=== PATIENT | female | born 1995 | race Caucasian/White ===

== ENCOUNTER 2017-01-17 13:54 | Emergency (ER) | payer OTHER ==
[2017-01-17 14:01] VITALS: BP 120/70; PULSE 73; RESP 14; TEMP 99; O2SAT 95
--- NOTE | 2017-01-17 14:29 | UCPHY ---
H & P Time Seen by Provider: 01/17/17 14:19 Patient Type: New (CHIEF COMPLAINT: [ ]HISTORY OF PRESENT ILLNESS: [must have 4 elements]REVIEW OF SYSTEMS: My complete review of systems is negative except as mentioned in the HPI.) HPI/ROS: CHIEF COMPLAINT: Vaginal bleeding HISTORY OF PRESENT ILLNESS: Patient is a 21-year-old female with a IUD in place who presents to urgent care with vaginal bleeding x2 days. Her bleeding started after sexual intercourse. She did have mild pain after intercourse and that she may have sustained an injury. The bleeding has decreased over the past 2 days. She states she had chills last night. No measured fever. She has no abdominal pain arrest. No vaginal discharge other than the reported bleeding. No dysuria or frequency. Patient is G0. Last menstrual period was "2 years ago. " REVIEW OF SYSTEMS: My complete review of systems is negative except as mentioned in the HPI. Past Medical/Surgical History: Negative Social History: Positive THC Smoking Status: Former smoker Physical Exam: Vitals noted GENERAL: Well-appearing, in no acute distress, alert. HEENT: Eyes normal to inspection, normal pharynx, no signs of dehydration. NECK: No thyromegaly, no lymphadenopathy, supple. RESPIRATORY: Clear to auscultation bilaterally, no rales, rhonchi or wheezing. CVS: Regular rate and rhythm, no rubs, murmurs, or gallops. ABDOMEN: Soft, minimal suprapubic tenderness to palpation with no rebound or guarding, nondistended, no organomegaly. BACK: Normal to inspection, no CVA tenderness. SKIN: Normal color, no rash, warm, dry. No pallor. EXTREMITIES: No pedal edema, no calf tenderness, no Homans sign or cords, no joint swelling. NEURO/PSYCH: Alert and oriented, normal mood and affect, normal motor sensory exam. Constitutional: Initial Vital Signs Temperature (C) 37.2 C 01/17/17 13:59 Heart Rate 73 01/17/17 13:59 Respiratory Rate 14 01/17/17 13:59 Blood Pressure 120/70 01/17/17 13:59 O2 Sat (%) 95 01/17/17 13:59 O2 Delivery Mode Room Air Allergies/Adverse Reactions: No Known Allergies Allergy (Unverified 08/06/16 15:50) Home Medications: Medication Instructions Recorded NK [No Known Home Meds] 08/06/16 Medical Decision Making ED Course/Re-evaluation: In urgent care discussed possible etiologies with the patient. She consented to a pelvic exam. FEMALE : Patient has a normal external pelvic exam. No lesions or discharge. Speculum exam: No visible vaginal injury or laceration. Normal appearing cervix. No lesions or discharge. There is tenderness colored discharge from the cervix. IUD appears in place. Bimanual exam: Normal, no tenderness to palpation bilaterally, normal ovaries bilaterally, normal uterus. UA: Negative. negative No clue cells, no Trichomonas, no yeast. GC and chlamydia pending. I discussed the results with the patient. She is aware that her swabs are pending the lab. I discussed the case with Dr. Beard. She will arrange close follow-up. The patient was given Dr. Beard contact information. She will return with worsening symptoms. She was given warnings prior to leaving. Differential Diagnosis: My differential on includes but is not limited to vaginal laceration, abrasion, contusion, cervical injury, IUD displacement, STD, urinary tract infection, vaginitis - Data Points Laboratory Results: 01/17/17 01/17/17 01/17/17 14:40 14:40 14:40 Urine Color YELLOW Urine Appearance CLEAR Urine pH 8.0 H (5.0-7.5) Ur Specific [place] 1.010 (1.002-1.030) Urine Protein NEGATIVE (NEGATIVE) Urine Ketones NEGATIVE (NEGATIVE) Urine Blood NEGATIVE (NEGATIVE) Urine Nitrate NEGATIVE (NEGATIVE) Urine Bilirubin NEGATIVE (NEGATIVE) Urine Urobilinogen 1.0 EU EU (0.2-1.0) Ur Leukocyte Esterase NEGATIVE (NEGATIVE) Ur Culture Indicated? NOT INDICATED (NI) Urine Glucose NEGATIVE (NEGATIVE) Urine Test Trichomonas (Wet Prep) 3+ EPITHELIAL CELLS Rachelle species DNA Pending C.trachomatis RNA (TMA) Pending Gardnerella DNA Probe Pending N.gonorrhoeae RNA (TMA) Pending Trichomonas DNA Probe Pending 01/17/17 14:40 Urine Color Urine Appearance Urine pH Ur Specific Evarts Urine Protein Urine Ketones Urine Blood Urine Nitrate Urine Bilirubin Urine Urobilinogen Ur Leukocyte Esterase Ur Culture Indicated? Urine Glucose Urine Test NEGATIVE Trichomonas (Wet Prep) Rachelle species DNA C.trachomatis RNA (TMA) Gardnerella DNA Probe N.gonorrhoeae RNA (TMA) Trichomonas DNA Probe Departure - Departure Disposition: Home, Routine, Self-Care Clinical Impression: Vaginal bleeding Condition: Good Instructions: Vaginal Discharge (ED) Additional Instructions: You have cultures pending. I discussed this with Dr. Beard. You need follow- up with Dr. Beard next week. Call her office for an appointment. Referrals: Adrienne Beard MD [Medical Doctor] - 3-4 days, if not improved - PQRS PQRS Measurement: My PQRS negative my PQRS negative my PQRS negative my PQRS negative 134: Depression screening and followup, PRIME MD-PHQ2 (12 years and older) Over the last 2 weeks, how often have you been bothered by any of the following problems? 1. Feeling down, depressed, or hopeless? 2. Little interest or pleasure in doing things? Patient answered no to both 1 and 2 130: Documentation of medications. Reviewed all patient medications, doses, route and frequency. 226: Do you smoke? No.
[2017-01-17 14:53] LABS: COLOR YELLOW; LEUKOCYTE ESTERASE,URINE NEGATIVE (NEGATIVE); NITRITE,URINE NEGATIVE (NEGATIVE)
[2017-01-20 13:13] LABS: CHLAMYDIA AMPLIFICATION GENPRB NEGATIVE (NEGATIVE)
== END 2017-01-17 15:15 | disposition home or self-care (01) ==
LOC: CED 13:54
DX: N93.9 Abnormal uterine and vaginal bleeding, unspecified (principal); Z97.5 Presence of (intrauterine) contraceptive device
CPT/HCPCS: 81003-PO; 81025-PO; 87210-PO; 99203-PO; G0463-PO